=== PATIENT | female | born 1965 | race Caucasian/White ===

== ENCOUNTER 2016-04-02 05:57 | Emergency (ER) | payer BC ==
[2016-04-02] MEDS ORDERED: Acetaminophen TAB* 325 MG PO ONE (06:50)
--- NOTE | 2016-04-02 07:13 | ED ---
Laceration/Wound HPI - HPI Summary HPI Summary: Patient presents with a head laceration after falling at 11:00 pm last night. She had been drinking Merlot and was on her way to the bathroom when she stumbled into the shower and struck her head. She knew that her head was bleeding and injured, so she pulled her sweatshirt up on her hair, went to the bathroom and then went to bed. She awoke this morning covered in dried blood and a friend brought her in for evaluation. She denies LOC, vomiting, neck pain or amnesia, but admits she had been drinking. She does not take daily blood thinners. - History of Current Complaint Stated Complaint: FALL,HEAD INJURY Time Seen by Provider: 04/02/16 06:37 Hx Obtained From: Patient, Family/Block Captain Mechanism of Injury: Sharp/Blunt Trauma Onset/Duration: Sudden Onset, Lasting Hours, Still Present Aggravating: Nothing Alleviating: Nothing Timing: Constant Onset Severity: Severe Current Severity: Severe Pain Intensity: 0 Associated Signs & Symptoms: Pain - Allergy/Home Medications Allergies/Adverse Reactions: Allergies Allergy/AdvReac Type Severity Reaction Status Date / Time No Known Allergies Allergy Verified 04/02/16 06:25 Home Medications: Home Medications Albuterol HFA INHALER* [Ventolin HFA Inhaler*] 1 puff INH Q4H PRN 04/02/16 [ History Confirmed 04/02/16] Levothyroxine TAB* [Synthroid TAB*] 75 mcg PO 0800 04/02/16 [History Confirmed 04/02/16] Methotrexate TAB* 2.5 mg PO DAILY 04/02/16 [History Confirmed 04/02/16] PMH/Surg Hx/FS Hx/Imm Hx - Cancer History Hx Chemotherapy: No Hx Radiation Therapy: No - Surgical History Surgery Procedure, Year, and Place: BREAST IMPLANTS 1999 - Immunization History Date of Tetanus Vaccine: unknown Date of Influenza Vaccine: fall 2015 Infectious Disease History: No Infectious Disease History: Denies: Traveled Outside the [place] in Last 30 Days - Family History Known Family History: Positive: None - Social History Occupation: Employed Full-time Lives: Alone Alcohol Use: Daily Alcohol Amount: 2-3 Substance Use Type: Reports: Marijuana Substance Use Comment - Amount & Last Used: daily - 3-4 times a day - 1/2 joint each time Smoking Status (MU): Light Every Day Tobacco Smoker Cessation Counseling: Patient Advised to Stop Review of Systems Negative: Photophobia, Blurred Vision, Diplopia Positive: Other - laceration to back of scalp Positive: Headache. Negative: Weakness, Paresthesia, Numbness All Other Systems Reviewed And Are Negative: Yes Physical Exam Triage Information Reviewed: Yes Vital Signs On Initial Exam: Initial Vitals Temp Pulse Resp BP Pulse Ox 97.9 F 112 18 155/86 99 04/02/16 05:58 04/02/16 05:58 04/02/16 05:58 04/02/16 05:58 04/02/16 05:58 Vital Signs Reviewed: Yes Appearance: Positive: Well-Appearing, No Pain Distress, Well-Nourished Skin: Positive: Warm, Skin Color Reflects Adequate Perfusion, Dry, Soft Eyes: Positive: EOMI, YOLANDA, Conjunctiva Clear ENT: Positive: Hearing grossly normal, Pharynx normal, TMs normal Neck: Positive: Supple, Nontender Respiratory/Lung Sounds: Positive: Breath Sounds Present Cardiovascular: Positive: RRR Abdomen Description: Positive: Nontender, Soft Bowel Sounds: Positive: Present Musculoskeletal: Positive: Strength/ROM Intact. Negative: Edema Left, Edema Right Neurological: Positive: Sensory/Motor Intact, Alert, Oriented to Person Place, Time, CN Intact II-III, NV Bundle Intact Distally Psychiatric: Positive: Affect/Mood Appropriate AVPU Assessment: Alert - [place] Coma Scale Coma Scale Total: 15 Procedures - Laceration/Wound Repair 1 Location: head Description: Linear Anesthesia: Local, 2.0%, Lido, Epi Length, Depth and Shape: 1.5 cm long, 3mm wide, 3mm deep Irrigated w/ Saline (ccs): 200 Laceration/Wound Explored: clean Closure: [place] #__ - 3 Debridement: minimal Layer Closure?: No Sterile Dressing Applied?: No Diagnostics - Vital Signs Vital Signs Temp Pulse Resp BP Pulse Ox 04/02/16 05:58 97.9 F 112 18 155/86 99 - Laboratory Lab Statement: Any lab studies that have been ordered have been reviewed, and results considered in the medical decision making process. - CT No standard instances CT Interpretation: No Acute Changes CT Interpretation Completed By: Radiologist Laceration Repair Course/Dx - Differential Dx Differental Diagnoses: Abrasion, Avulsion, Cellulitis, Dehiscence, Hematoma, Laceration, Puncture Wound - Clinical Impression Provider Diagnoses: Head injury with skull fracture, Laceration, Hematoma Discharge - Discharge Plan Condition: Stable Disposition: HOME Patient Education Materials: Head Injury (ED), Staple Care (ED) Forms: *Work Release Referrals: Laruy Singh [facility] [facility] [Primary Care Provider] - Additional Instructions: Please use Tylenol for pain the first 24 hours after injury. After 24 hours you can begin using Ibuprofen as well. Use ice to reduce swelling. Get plenty of rest today. Follow-up with your primary care provider in 5 days for staple removal. Return to the emergency department if symptoms worsen.
--- NOTE | 2016-04-02 08:20 | RAD ---
HISTORY: Fall, hematoma, laceration COMPARISONS: None TECHNIQUE: Multiple contiguous axial CT scans were obtained of the head without intravenous contrast. FINDINGS: HEMORRHAGE/INFARCT: There is no hemorrhage or acute infarct. MASSES/SHIFT: There is no mass or shift. EXTRA-AXIAL SPACES: There are no extra-axial fluid collections. SULCI AND VENTRICLES: The sulci and ventricles are normal in size and position for the patient's stated age. CEREBRUM: There are no focal parenchymal abnormalities. BRAINSTEM: There are no focal parenchymal abnormalities. CEREBELLUM: There are no focal parenchymal abnormalities. VESSELS: The vessels are grossly normal. PARANASAL SINUSES: The paranasal sinuses are clear. ORBITS: The orbits are unremarkable. BONES AND SOFT TISSUE: There is a right parieto-occipital scalp hematoma OTHER: None IMPRESSION: SCALP HEMATOMA. NO ACUTE INTRACRANIAL PATHOLOGY.
[2016-04-02 09:37] VITALS: BP 117/73
== END 2016-04-02 09:36 | disposition home or self-care (01) ==
LOC: ED 05:57
DX: S02.91XA Unspecified fracture of skull, initial encounter for closed fracture (principal); S01.01XA Laceration without foreign body of scalp, initial encounter; W18.09XA Striking against other object with subsequent fall, initial encounter; Y92.091 Bathroom in other non-institutional residence as the place of occurrence of the external cause; Z72.0 Tobacco use
CPT/HCPCS: 12001; 70450; 99283; A9270-GY